=== PATIENT | male | born 1945 | race Caucasian/White ===

== ENCOUNTER 2019-02-10 11:06 | Emergency (ER) | payer MEDICARE ==
[~2019-02-10] VITALS: Ht 188 cm; Wt 105.5 kg
[2019-02-10 11:09] VITALS: Ht 188 cm; Wt 105.5 kg
[2019-02-10] MEDS ORDERED: LEVEMIR IN100 UNITS/ (11:15)
[2019-02-10] MEDS ORDERED: NOVOLOG100 UNIT/1 (11:15)
[2019-02-10] MEDS ORDERED: XALATAN 0.0052.5 ML (11:15)
[2019-02-10] MEDS ORDERED: PROSCAR5 MG (11:16)
[2019-02-10] MEDS ORDERED: CRESTOR20 MG (11:16)
[2019-02-10] MEDS ORDERED: LISINOPRIL20 MG (11:16)
[2019-02-10] MEDS ORDERED: FLOMAX0.4 MG PO (11:16)
[2019-02-10] MEDS ORDERED: BAYER CHEWABLE81 MG (11:16)
[2019-02-10] MEDS ORDERED: CARDIZEM60 MG (11:16)
[2019-02-10 12:18] LABS: ALBUMIN 3.5 g/dL (3.4-5.0); ALKALINE PHOSPHATASE 57 U/L (46-116); ALT (SGPT) 21 U/L (10-68); BILIRUBIN - TOTAL 0.32 mg/dL (0.2-1.3); CALC OSMOLALITY 288 mosm/kg (275-300); CALCIUM 8.6 mg/dL (8.5-10.1); CARBON DIOXIDE 27.9 mmol/L (21.0-32.0); CHLORIDE - SERUM 106 mmol/L (98-107); GLUCOSE 126 mg/dL (74-106); PROTEIN - SERUM 6.3 g/dL (6.4-8.2); SODIUM 141 mmol/L (136-145); UREA NITROGEN 29 mg/dL (7-18); eGFR NON AFRICAN AMERICAN 78 mL/min (90-120)
[2019-02-10 12:28] LABS: CKMB 0.6 U/L (0.0-3.6); TROPONIN-I < 0.017 ng/mL (0.000-0.060)
[2019-02-10 13:09] LABS: APPEARANCE CLEAR (CLEAR); BILIRUBIN NEGATIVE (NEGATIVE); COLOR YELLOW (YELLOW); GLUCOSE NEGATIVE (NEGATIVE); KETONE NEGATIVE (NEGATIVE); NITRITE NEGATIVE (NEGATIVE); PROTEIN NEGATIVE (NEGATIVE); SPECIFIC GRAVITY 1.015 (1.005-1.020); UROBILINOGEN NORMAL (NORMAL)
[2019-02-10 13:22] LABS: BASOPHILS 0.3 % (0-2); EOSINOPHILS 0.9 % (0-7); HEMATOCRIT 38.9 % (42.0-54.0); HEMOGLOBIN 13.2 g/dL (13.5-17.5); IMMATURE GRANULOCYTES 0.1 % (0-5); LYMPHOCYTES 16.7 % (15-50); MCH 28.4 pg (26.0-34.0); MCHC 33.9 g/dL (31.0-37.0); MCV 83.7 fL (80.0-100.0); MEAN PLATELET VOLUME 9.7 fL (7.4-10.4); PLATELET COUNT 121 10x3/uL (130-400); RBC 4.65 10x6/uL (4.20-6.10); RDW 14.7 % (11.5-14.5); WBC 6.7 10x3/uL (4.8-10.8)
[2019-02-10 16:36] VITALS: BP 117/92
[2019-02-10] MEDS ORDERED: PHENERGAN25 M1 PO (17:08)
[2019-02-10] MEDS ORDERED: VOLTAREN75 MG PO (17:08)
[2019-02-10] MEDS ORDERED: OMEPRAZOLE40 MG PO (17:08)
== END 2019-02-10 17:34 | disposition home or self-care (01) ==
LOC: D.ER 11:06
PROVIDERS: Emergency Medicine
DX: M50.30 Other cervical disc degeneration, unspecified cervical region (principal)

== ENCOUNTER 2019-03-12 22:47 | Inpatient (IN) | payer MEDICARE ==
[~2019-03-12] VITALS: Ht 185.4 cm; Wt 96.7 kg
[~2019-03-12 22:47] MED LIST: BAYER CHEWABLE81 MG PO; CARDIZEM60 MG PO; CRESTOR20 MG PO; FLOMAX0.4 MG PO; LEVEMIR IN100 UNITS/ SC; LISINOPRIL20 MG PO; NOVOLOG100 UNIT/1 SC; OMEPRAZOLE40 MG PO; PHENERGAN25 M1 PO; PROSCAR5 MG PO; VOLTAREN75 MG PO; XALATAN 0.0052.5 ML EACH EYE
[2019-03-12] MEDS ORDERED: SYNTHROID75 MCG PO (22:57)
[2019-03-12] MEDS ORDERED: HYDRALAZINE HCL10 MG PO (22:58)
[2019-03-12 23:35] LABS: APPEARANCE CLEAR (CLEAR); BILIRUBIN NEGATIVE (NEGATIVE); COLOR YELLOW (YELLOW); GLUCOSE 100 mg/dL (NEGATIVE); KETONE LARGE mg/dL (NEGATIVE); NITRITE NEGATIVE (NEGATIVE); PROTEIN 1+ mg/dL (NEGATIVE); SPECIFIC GRAVITY 1.025 (1.005-1.020); UROBILINOGEN NORMAL (NORMAL)
[2019-03-12 23:37] LABS: BACTERIA FEW /hpf (NONE SEEN); EPITHELIAL CELLS 0-5 /hpf (0-5); MUCUS <1+ /lpf (NONE SEEN); RED CELLS - URINE 0-5 /hpf (0-5); UDS - AMPHET NEGATIVE QUAL (NEGATIVE); UDS - BARB NEGATIVE QUAL (NEGATIVE); UDS - BENZO NEGATIVE QUAL (NEGATIVE); UDS - COCAINE NEGATIVE QUAL (NEGATIVE); UDS - OPIATE NEGATIVE QUAL (NEGATIVE); UDS - PCP NEGATIVE QUAL (NEGATIVE); UDS - THC NEGATIVE QUAL (NEGATIVE); WHITE CELLS - URINE 0-5 /hpf (0-5)
[2019-03-12 23:49] LABS: HEMATOCRIT 48.7 % (42.0-54.0); HEMOGLOBIN 16.4 g/dL (13.5-17.5); LYMPHOCYTES 4.6 % (15-50); MCH 28.4 pg (26.0-34.0); MCHC 33.7 g/dL (31.0-37.0); MCV 84.3 fL (80.0-100.0); MEAN PLATELET VOLUME 10.3 fL (7.4-10.4); NEUTROPHILS 91.9 % (40-80); PLATELET COUNT 153 10x3/uL (130-400); RBC 5.78 10x6/uL (4.20-6.10); RDW 15.3 % (11.5-14.5)
[2019-03-12 23:54] LABS: WBC 18.4 10x3/uL (4.8-10.8)
[2019-03-12 23:57] VITALS: BP 153/62
[2019-03-12 23:58] LABS: ALBUMIN 3.3 g/dL (3.4-5.0); ALKALINE PHOSPHATASE 56 U/L (46-116); ALT (SGPT) 47 U/L (10-68); BILIRUBIN - TOTAL 0.94 mg/dL (0.2-1.3); CALCIUM 8.8 mg/dL (8.5-10.1); CHLORIDE - SERUM 102 mmol/L (98-107); PROTEIN - SERUM 6.7 g/dL (6.4-8.2); SODIUM 138 mmol/L (136-145)
[2019-03-13] VITALS (24 sets, daily range): BP systolic 129–194; BP diastolic 58–99; BMI 31.2
[2019-03-13] LABS: CALC OSMOLALITY 293 mosm/kg (275-300); CREATININE - SERUM 1.5 mg/dL (0.6-1.3); GLUCOSE 296 mg/dL (74-106); POTASSIUM - SERUM 5.8 mmol/L (3.5-5.1); UREA NITROGEN 31 mg/dL (7-18); eGFR NON AFRICAN AMERICAN 49 mL/min (90-120)
[2019-03-13 00:17] LABS: CREATINE KINASE 4395 UL (21-232); MAGNESIUM - SERUM 1.4 mg/dL (1.8-2.4)
[2019-03-13 00:19] LABS: TROPONIN-I 0.102 ng/mL (0.000-0.060)
[2019-03-13 07:38] LABS: APTT 29.9 SECONDS (22.8-39.4); HEMATOCRIT 43.6 % (42.0-54.0); HEMOGLOBIN 15.4 g/dL (13.5-17.5); INR 1.44 (0.85-1.17); MCH 28.6 pg (26.0-34.0); MCHC 35.3 g/dL (31.0-37.0); PLATELET COUNT 154 10x3/uL (130-400); RBC 5.38 10x6/uL (4.20-6.10); RDW 14.8 % (11.5-14.5); WBC 21.4 10x3/uL (4.8-10.8)
[2019-03-13 07:52] LABS: ALKALINE PHOSPHATASE 54 U/L (46-116); BILIRUBIN - TOTAL 0.62 mg/dL (0.2-1.3); CALC OSMOLALITY 298 mosm/kg (275-300); CALCIUM 8.6 mg/dL (8.5-10.1); CARBON DIOXIDE 22.9 mmol/L (21.0-32.0); CHLORIDE - SERUM 105 mmol/L (98-107); CKMB 55.2 U/L (0.0-3.6); CREATININE - SERUM 1.6 mg/dL (0.6-1.3); GLUCOSE 322 mg/dL (74-106); MAGNESIUM - SERUM 1.7 mg/dL (1.8-2.4); PHOSPHOROUS 2.5 mg/dL (2.5-4.9); PROTEIN - SERUM 6.5 g/dL (6.4-8.2); SODIUM 140 mmol/L (136-145); UREA NITROGEN 34 mg/dL (7-18); eGFR NON AFRICAN AMERICAN 45 mL/min (90-120)
[2019-03-13 07:56] LABS: ALT (SGPT) 60 U/L (10-68); CREATINE KINASE 4645 UL (21-232); POTASSIUM - SERUM 3.8 mmol/L (3.5-5.1); TROPONIN-I 0.092 ng/mL (0.000-0.060)
[2019-03-13 09:33] LABS: EOSINOPHILS 1 % (0-7); LYMPHOCYTES 10 % (15-50); MONOCYTES 7 % (2-11); NEUTROPHILS 59 % (40-80); PLATELET ESTIMATE NORMAL
[2019-03-13 09:34] LABS: ANISOCYTOSIS OCC
[2019-03-13 12:58] LABS: CKMB 46.1 U/L (0.0-3.6); CREATINE KINASE 4911 UL (21-232); TROPONIN-I 0.104 ng/mL (0.000-0.060)
[2019-03-13 19:30] LABS: CREATINE KINASE 3338 UL (21-232); TROPONIN-I 0.095 ng/mL (0.000-0.060)
[2019-03-14] VITALS (23 sets, daily range): BP systolic 121–187; BP diastolic 54–82
[2019-03-14 04:31] LABS: BASOPHILS 0 % (0-2); EOSINOPHILS 0 % (0-7); HEMOGLOBIN 15.1 g/dL (13.5-17.5); LYMPHOCYTES 7.4 % (15-50); MCH 28.6 pg (26.0-34.0); MCHC 34.3 g/dL (31.0-37.0); MCV 83.3 fL (80.0-100.0); MEAN PLATELET VOLUME 10.1 fL (7.4-10.4); MONOCYTES 4.9 % (2-11); NEUTROPHILS 86.7 % (40-80); PLATELET COUNT 123 10x3/uL (130-400); RBC 5.28 10x6/uL (4.20-6.10); RDW 14.8 % (11.5-14.5); WBC 19.2 10x3/uL (4.8-10.8)
[2019-03-14 04:56] LABS: ALBUMIN 2.7 g/dL (3.4-5.0); BILIRUBIN - TOTAL 0.64 mg/dL (0.2-1.3); CALCIUM 8.6 mg/dL (8.5-10.1); CARBON DIOXIDE 27.5 mmol/L (21.0-32.0); PROTEIN - SERUM 5.7 g/dL (6.4-8.2)
[2019-03-14 04:58] LABS: ANION GAP 16.1 mmol/L (8-16); CREATININE - SERUM 1.1 mg/dL (0.6-1.3); POTASSIUM - SERUM 4.6 mmol/L (3.5-5.1)
[2019-03-14 14:54] LABS: CHOL - HDL RATIO 1.8 ratio (2.3-4.9); LDL-HDL RATIO 0.6 ratio (1.5-3.5)
--- NOTE | 2019-03-14 20:45 | MORECARE ---
CASE MANAGEMENT DISCHARGE SUMMARY PATIENT: MAME DOWNEY RAY UNIT: [id number] ADM DATE: 03/12/19 AGE: 73 : 44 SEX: M ROOM/BED: D.2310 AUTHOR: RODRIGUEZ CHAVARRIA PHYSICIAN: REFERRING PHYSICIAN: AYAD QUIROS MD DATE OF SERVICE: 03/14/19 Discharge Plan Patient Name: MAME DOWNEY [facility] : 1945 Planned Disposition: Anticipated Discharge Date: Discharge Date: Expected LOS: Initial Reviewer: [email or web address] Initial Review Date: 03/13/2019 Generated: 03/14/19 9:44 pm Comments DCP- Discharge Planning Updated by [email or web address]: Sona Burgos on 03/14/19 7:[address] CM attempted to see patient for discharge planning he will open his eyes but is non-verbal. No family available at this time. CM will continue to follow and assist as needed with discharge planning / needs. Patient Name: MAME DOWNEY Page [phone] at 2045 All edits/amendments must be made on the electronic document DICTATION DATE: 03/14/192043 DRY PRESS OPERATOR: NANNETTE 03/14/192043 RPT#: [id number] DC DATE: STATUS: ADM IN [facility] [address] [place] [address] END OF REPORT
[2019-03-15] VITALS (8 sets, daily range): BP systolic 156–182; BP diastolic 71–86
[2019-03-15 04:39] LABS: BASOPHILS 0 % (0-2); EOSINOPHILS 0.1 % (0-7); HEMATOCRIT 40.3 % (42.0-54.0); HEMOGLOBIN 13.6 g/dL (13.5-17.5); IMMATURE GRANULOCYTES 0.3 % (0-5); LYMPHOCYTES 7.4 % (15-50); MCHC 33.7 g/dL (31.0-37.0); MCV 83.1 fL (80.0-100.0); MEAN PLATELET VOLUME 11.1 fL (7.4-10.4); MONOCYTES 5.4 % (2-11); NEUTROPHILS 86.8 % (40-80); PLATELET COUNT 132 10x3/uL (130-400); RBC 4.85 10x6/uL (4.20-6.10); RDW 14.4 % (11.5-14.5); WBC 17.2 10x3/uL (4.8-10.8)
[2019-03-15 04:48] LABS: ALBUMIN 2.4 g/dL (3.4-5.0); ALKALINE PHOSPHATASE 63 U/L (46-116); ALT (SGPT) 54 U/L (10-68); BILIRUBIN - TOTAL 0.79 mg/dL (0.2-1.3); CALC OSMOLALITY 294 mosm/kg (275-300); CALCIUM 8.2 mg/dL (8.5-10.1); CARBON DIOXIDE 28.2 mmol/L (21.0-32.0); CHLORIDE - SERUM 108 mmol/L (98-107); GLUCOSE 194 mg/dL (74-106); MAGNESIUM - SERUM 1.9 mg/dL (1.8-2.4); POTASSIUM - SERUM 4.1 mmol/L (3.5-5.1); PROTEIN - SERUM 5.2 g/dL (6.4-8.2); SODIUM 143 mmol/L (136-145); UREA NITROGEN 26 mg/dL (7-18)
[2019-03-15 04:49] LABS: CREATININE - SERUM 0.8 mg/dL (0.6-1.3); PHOSPHOROUS 1.4 mg/dL (2.5-4.9); eGFR NON AFRICAN AMERICAN > 90 mL/min (90-120)
--- NOTE | 2019-03-15 16:55 | MORECARE ---
CASE MANAGEMENT DISCHARGE SUMMARY PATIENT: MAME DOWNEY RAY UNIT: [id number] ADM DATE: 03/12/19 AGE: 73 : 44 SEX: M ROOM/BED: D.2310 AUTHOR: RODRIGUEZ CHAVARRIA PHYSICIAN: REFERRING PHYSICIAN: AYAD QUIROS MD DATE OF SERVICE: 03/15/19 Discharge Plan Patient Name: MAME DOWNEY [facility] [facility] 1945 Planned Disposition: Anticipated Discharge Date: Discharge Date: Expected LOS: Initial Reviewer: [email or web address] Initial Review Date: 03/13/2019 Generated: 03/15/19 5:54 pm Comments DCP- Discharge Planning Updated by [email or web address]: Sona Burgos on 03/14/19 7:[address] CM attempted to see patient for discharge planning he will open his eyes but is non-verbal. No family available at this time. CM will continue to follow and assist as needed with discharge planning / needs. Last DP export: 03/14/19 7:45 p Patient Name: MAME DOWNEY Page [phone] at 1655 All edits/amendments must be made on the electronic document DICTATION DATE: 03/15/191653 CAR DUMPER OPERATOR: NANNETTE 03/15/191653 RPT#: [id number] DC DATE: STATUS: ADM IN [facility] [address] [place] [address] END OF REPORT
--- NOTE | 2019-03-15 17:02 | MORECARE ---
CASE MANAGEMENT DISCHARGE SUMMARY PATIENT: MAME DOWNEY RAY UNIT: [id number] ADM DATE: 03/12/19 AGE: 73 : 44 SEX: M ROOM/BED: D.2310 AUTHOR: DEONDOC PHYSICIAN: REFERRING PHYSICIAN: AYAD QUIROS MD DATE OF SERVICE: 03/15/19 Discharge Plan Patient Name: MAME DOWNEY Facility: [facility]:[place] : 1945 Planned Disposition: Anticipated Discharge Date: Discharge Date: Expected LOS: Initial Reviewer: [email or web address] Initial Review Date: 03/13/2019 Generated: 03/15/19 6:01 pm Comments DCP- Discharge Planning Updated by [email or web address]: Vania Tatum on 03/15/19 3:[address] Patient Name: MAME DOWNEY Admission Status: ER Accout number: [id number] Admission Date: 03-12-2019 : 1945 Admission Diagnosis:OTHER CEREBRAL INFARCTION Attending: AYAD QUIROS Current LOS: 3 Anticipated DC Date: Planned Disposition: Primary Insurance: [employer] CHOICE PPO MCR ADVANT Discharge Planning Comments: CM SPOKE WITH PATIENT'S SON MATY DOWNEY OVER THE PHONE ABOUT DC NEEDS. THE SON STATES WOULD LIKE [facility] IF APPROPRIATE. HE STATES HIS FATHER CURRENTLY LIVES ALONE BUT WILL NEED REHAB BEFORE DISCHARGE TO HOME. [facility]. CM TO FOLLOW. Machine Marker: Vania Tatum Appended by Vania Tatum on 03/15/2019 16:57 CDT: THE SON ALSO STATED THAT HIS FATHER IS A VA PATIENT BUT HAS HUMANA, STATES IF INSURANCE COVERS SKILLED WITHOUT GOING THROUGH THE VA HE WANTS TO GO THAT ROUTE. DCP- Discharge Planning Updated by [email or web address]: Sona Burgos on 03/14/19 7:[address] CM attempted to see patient for discharge planning he will open his eyes but is non-verbal. No family available at this time. CM will continue to follow and assist as needed with discharge planning / needs. Coverage Notice Reviewer: [email or web address] - Vania Tatum Notice Issued Date-Time: 03/15/2019 16:55 Notice Type: Patient Choice Letter Notice Delivered To: Family Member Relationship to Patient: Son Second Vp Hr Assessment Name: MATY DOWNEY Delivery Method: PHONE - Phone Deanne Days: Prior Verbal Notification: Recipient Understood Notice: Yes Recipient Signature: Med Rec Note Co-signed by Attending: Coverage Notice Comment: [facility] FOR SNF. Last DP export: 03/15/19 3:55 p Patient Name: MAME DOWNEY Page [phone] at 1702 All edits/amendments must be made on the electronic document DICTATION DATE: 03/15/191700 RUBBER AND PLASTICS WORKER: NANNETTE 03/15/191700 RPT#: [id number] DC DATE: STATUS: ADM IN [facility] [address] [place] [address] END OF REPORT
[2019-03-16] VITALS (13 sets, daily range): BP systolic 132–174; BP diastolic 62–79
[2019-03-16 03:33] LABS: BASOPHILS 0 % (0-2); EOSINOPHILS 0.5 % (0-7); HEMATOCRIT 38.1 % (42.0-54.0); IMMATURE GRANULOCYTES 0.3 % (0-5); LYMPHOCYTES 8.3 % (15-50); MCH 28.3 pg (26.0-34.0); MCHC 34.1 g/dL (31.0-37.0); MCV 82.8 fL (80.0-100.0); MEAN PLATELET VOLUME 10.5 fL (7.4-10.4); MONOCYTES 7.9 % (2-11); PLATELET COUNT 130 10x3/uL (130-400); RDW 14.4 % (11.5-14.5)
[2019-03-16 03:48] LABS: ALBUMIN 2.1 g/dL (3.4-5.0); ALKALINE PHOSPHATASE 61 U/L (46-116); ALT (SGPT) 52 U/L (10-68); BILIRUBIN - TOTAL 0.78 mg/dL (0.2-1.3); CALC OSMOLALITY 294 mosm/kg (275-300); CARBON DIOXIDE 24.7 mmol/L (21.0-32.0); CHLORIDE - SERUM 107 mmol/L (98-107); CREATININE - SERUM 0.7 mg/dL (0.6-1.3); GLUCOSE 211 mg/dL (74-106); MAGNESIUM - SERUM 1.8 mg/dL (1.8-2.4); PROTEIN - SERUM 4.8 g/dL (6.4-8.2); SODIUM 144 mmol/L (136-145); eGFR NON AFRICAN AMERICAN > 90 mL/min (90-120)
[2019-03-16 03:51] LABS: PHOSPHOROUS 2.5 mg/dL (2.5-4.9); UREA NITROGEN 18 mg/dL (7-18)
[2019-03-16 03:58] LABS: WBC 12.5 10x3/uL (4.8-10.8)
[2019-03-17] VITALS: BP 124/76; BP 160/60
[2019-03-17 04:00] VITALS: BP 161/66
[2019-03-17 06:58] LABS: BASOPHILS 0.1 % (0-2); EOSINOPHILS 0.4 % (0-7); HEMATOCRIT 39.5 % (42.0-54.0); HEMOGLOBIN 13.4 g/dL (13.5-17.5); IMMATURE GRANULOCYTES 0.5 % (0-5); LYMPHOCYTES 7.4 % (15-50); MCH 27.9 pg (26.0-34.0); MCHC 33.9 g/dL (31.0-37.0); MCV 82.3 fL (80.0-100.0); MEAN PLATELET VOLUME 10.7 fL (7.4-10.4); MONOCYTES 8.3 % (2-11); NEUTROPHILS 83.3 % (40-80)
[2019-03-17 07:06] LABS: ALBUMIN 2.4 g/dL (3.4-5.0); ALKALINE PHOSPHATASE 68 U/L (46-116); ALT (SGPT) 52 U/L (10-68); BILIRUBIN - TOTAL 1.07 mg/dL (0.2-1.3); CALC OSMOLALITY 285 mosm/kg (275-300); CALCIUM 8.1 mg/dL (8.5-10.1); CARBON DIOXIDE 23.6 mmol/L (21.0-32.0); CHLORIDE - SERUM 103 mmol/L (98-107); GLUCOSE 256 mg/dL (74-106); MAGNESIUM - SERUM 1.8 mg/dL (1.8-2.4); POTASSIUM - SERUM 3.7 mmol/L (3.5-5.1); PROTEIN - SERUM 5.2 g/dL (6.4-8.2); SODIUM 138 mmol/L (136-145); UREA NITROGEN 16 mg/dL (7-18)
[2019-03-17 07:09] LABS: CREATININE - SERUM 0.9 mg/dL (0.6-1.3); eGFR NON AFRICAN AMERICAN 88 mL/min (90-120)
[2019-03-17 07:23] LABS: PLATELET COUNT 171 10x3/uL (130-400)
[2019-03-17 08:55] VITALS: BP 131/44
[2019-03-17 16:25] VITALS: BP 169/62
[2019-03-17 20:00] VITALS: BP 146/64
[2019-03-17 23:27] VITALS: BP 152/65
[2019-03-18 04:51] LABS: BASOPHILS 0.1 % (0-2); EOSINOPHILS 0.7 % (0-7); HEMATOCRIT 37.6 % (42.0-54.0); IMMATURE GRANULOCYTES 0.6 % (0-5); LYMPHOCYTES 10.8 % (15-50); MCH 28.2 pg (26.0-34.0); MCHC 34.6 g/dL (31.0-37.0); MCV 81.6 fL (80.0-100.0); MEAN PLATELET VOLUME 9.7 fL (7.4-10.4); MONOCYTES 11.2 % (2-11); NEUTROPHILS 76.6 % (40-80); PLATELET COUNT 154 10x3/uL (130-400); RBC 4.61 10x6/uL (4.20-6.10); RDW 13.8 % (11.5-14.5); WBC 10.1 10x3/uL (4.8-10.8)
[2019-03-18 05:08] VITALS: BP 168/68
[2019-03-18 05:12] LABS: ALBUMIN 2.2 g/dL (3.4-5.0); ALKALINE PHOSPHATASE 61 U/L (46-116); ALT (SGPT) 42 U/L (10-68); BILIRUBIN - TOTAL 1.01 mg/dL (0.2-1.3); CALC OSMOLALITY 288 mosm/kg (275-300); CALCIUM 7.9 mg/dL (8.5-10.1); CARBON DIOXIDE 23.3 mmol/L (21.0-32.0); CHLORIDE - SERUM 103 mmol/L (98-107); CREATININE - SERUM 0.8 mg/dL (0.6-1.3); GLUCOSE 276 mg/dL (74-106); POTASSIUM - SERUM 3.6 mmol/L (3.5-5.1); SODIUM 139 mmol/L (136-145); UREA NITROGEN 15 mg/dL (7-18); eGFR NON AFRICAN AMERICAN > 90 mL/min (90-120)
[2019-03-18 08:56] VITALS: BP 168/70
[2019-03-18 20:20] VITALS: BP 142/61
[2019-03-18 20:30] VITALS: BP 142/61; Ht 185.4 cm; Wt 96.7 kg
[2019-03-18 22:30] VITALS: BP 168/81
[2019-03-18 23:00] VITALS: BP 171/74
[2019-03-19] VITALS (19 sets, daily range): BP systolic 109–174; BP diastolic 51–102
[2019-03-19 03:57] LABS: BASOPHILS 0.1 % (0-2); EOSINOPHILS 0.3 % (0-7); HEMATOCRIT 35.5 % (42.0-54.0); HEMOGLOBIN 12.2 g/dL (13.5-17.5); IMMATURE GRANULOCYTES 0.5 % (0-5); LYMPHOCYTES 9.2 % (15-50); MCH 27.9 pg (26.0-34.0); MCHC 34.4 g/dL (31.0-37.0); MCV 81.2 fL (80.0-100.0); MEAN PLATELET VOLUME 10.1 fL (7.4-10.4); MONOCYTES 11.7 % (2-11); NEUTROPHILS 78.2 % (40-80); PLATELET COUNT 173 10x3/uL (130-400); RBC 4.37 10x6/uL (4.20-6.10); RDW 13.7 % (11.5-14.5); WBC 7.6 10x3/uL (4.8-10.8)
[2019-03-19 06:36] LABS: ALBUMIN 2.2 g/dL (3.4-5.0); ALKALINE PHOSPHATASE 56 U/L (46-116); ALT (SGPT) 45 U/L (10-68); BILIRUBIN - TOTAL 0.71 mg/dL (0.2-1.3); CALC OSMOLALITY 290 mosm/kg (275-300); CALCIUM 7.9 mg/dL (8.5-10.1); CARBON DIOXIDE 30.2 mmol/L (21.0-32.0); CHLORIDE - SERUM 105 mmol/L (98-107); CREATININE - SERUM 0.8 mg/dL (0.6-1.3); GLUCOSE 220 mg/dL (74-106); POTASSIUM - SERUM 3.6 mmol/L (3.5-5.1); PROTEIN - SERUM 5.5 g/dL (6.4-8.2); SODIUM 142 mmol/L (136-145); UREA NITROGEN 14 mg/dL (7-18); VANCOMYCIN - TROUGH 13.8 ug/mL (10.0-20.0); eGFR NON AFRICAN AMERICAN > 90 mL/min (90-120)
[2019-03-19] MEDS ORDERED: MAXIPIME 2 GM/D52 G1 IV (18:53)
[2019-03-19] MEDS ORDERED: VANCOMYCIN 1 GM/1 G1 IV ×2 (18:54→18:55)
--- NOTE | 2019-03-20 09:21 | MORECARE ---
CASE MANAGEMENT DISCHARGE SUMMARY PATIENT: MAME DOWNEY RAY UNIT: [id number] ADM DATE: 03/12/19 AGE: 73 : 44 SEX: M ROOM/BED: D.2306 AUTHOR: RODRIGUEZ CHAVARRIA PHYSICIAN: REFERRING PHYSICIAN: AYAD QUIROS MD DATE OF SERVICE: 03/20/19 Discharge Plan Patient Name: MAME DOWNEY Facility: [facility]:[place] : 1945 Planned Disposition: Anticipated Discharge Date: Discharge Date: 03/19/2019 Expected LOS: Initial Reviewer: [email or web address] Initial Review Date: 03/13/2019 Generated: 03/20/19 10:21 am Comments DCP- Discharge Planning Updated by [email or web address]: Vania Tatum on 03/15/19 3:[address] Patient Name: MAME DOWNEY Admission Status: ER Accout number: [id number] Admission Date: 03-12-2019 : 1945 Admission Diagnosis:OTHER CEREBRAL INFARCTION Attending: AYAD QUIROS Current LOS: 3 Anticipated DC Date: Planned Disposition: Primary Insurance: [employer] CHOICE PPO MCR ADVANT Discharge Planning Comments: CM SPOKE WITH PATIENT'S SON MATY DOWNEY OVER THE PHONE ABOUT DC NEEDS. THE SON STATES WOULD LIKE [facility] IF APPROPRIATE. HE STATES HIS FATHER CURRENTLY LIVES ALONE BUT WILL NEED REHAB BEFORE DISCHARGE TO HOME. [facility] COMPLE[facility]. CM TO FOLLOW. Rough Rice Grader: Vania Tatum Appended by Vania Tatum on 03/15/2019 16:57 CDT: THE SON ALSO STATED THAT HIS FATHER IS A VA PATIENT BUT HAS HUMANA, STATES IF INSURANCE COVERS SKILLED WITHOUT GOING THROUGH THE VA HE WANTS TO GO THAT ROUTE. DCP- Discharge Planning Updated by [id number]: Sona Burgos on 03/14/19 7:[address] CM attempted to see patient for discharge planning he will open his eyes but is non-verbal. No family available at this time. CM will continue to follow and assist as needed with discharge planning / needs. Coverage Notice Reviewer: [email or web address] - Vania Tatum Notice Issued Date-Time: 03/15/2019 16:55 Notice Type: Patient Choice Letter Notice Delivered To: Family Member Relationship to Patient: Son Admissions Specialist Name: MATY DOWNEY Delivery Method: PHONE - Phone Deanne Days: Prior Verbal Notification: Recipient Understood Notice: Yes Recipient Signature: Med Rec Note Co-signed by Attending: Coverage Notice Comment: [facility] FOR SNF. Last DP export: 03/15/19 4:02 p Patient Name: MAME DOWNEY Page [phone] at 0921 All edits/amendments must be made on the electronic document DICTATION DATE: 03/20/19920 GUEST RELATIONS AGENT: NANNETTE 03/20/19920 RPT#: [id number] DC DATE:03/19/19 STATUS: DIS IN [facility] [address] [place] [address] END OF REPORT
== END 2019-03-19 19:22 | DRG 64 ==
LOC: D.ER 22:47 → D.MS 23:33 → D.ICU 23:33 → D.MS 03-16 16:49 → D.ICU 03-18 20:40
PROVIDERS: Emergency Medicine; Family Medicine; ADMIT Internal Medicine Nephrology; ATTEND Internal Medicine Nephrology
DX: I63.89 Other cerebral infarction (principal); G92 Toxic encephalopathy; J69.0 Pneumonitis due to inhalation of food and vomit; N17.9 Acute kidney failure, unspecified; M62.82 Rhabdomyolysis; K21.9 Gastro-esophageal reflux disease without esophagitis; E78.5 Hyperlipidemia, unspecified; E87.5 Hyperkalemia; E83.42 Hypomagnesemia; D72.819 Decreased white blood cell count, unspecified; E11.65 Type 2 diabetes mellitus with hyperglycemia; R47.01 Aphasia; I25.10 Atherosclerotic heart disease of native coronary artery without angina pectoris; I10 Essential (primary) hypertension; E03.9 Hypothyroidism, unspecified; N40.0 Benign prostatic hyperplasia without lower urinary tract symptoms; E11.42 Type 2 diabetes mellitus with diabetic polyneuropathy; Z79.4 Long term (current) use of insulin

== ENCOUNTER 2019-03-13 08:00 | Outpatient (CLI) | payer MEDICARE ==
[2019-03-11 11:45] LABS: HEMATOCRIT 43.2 % (42.0-54.0); HEMOGLOBIN 14.7 g/dL (13.5-17.5); MCH 28.2 pg (26.0-34.0); MCV 82.9 fL (80.0-100.0); MEAN PLATELET VOLUME 10.2 fL (7.4-10.4); RBC 5.21 10x6/uL (4.20-6.10); RDW 14.3 % (11.5-14.5); WBC 9.4 10x3/uL (4.8-10.8)
[2019-03-11 11:56] LABS: ANION GAP 10.4 mmol/L (8-16); CALCIUM 8.9 mg/dL (8.5-10.1); CARBON DIOXIDE 32.5 mmol/L (21.0-32.0); CREATININE - SERUM 1.1 mg/dL (0.6-1.3); POTASSIUM - SERUM 4.9 mmol/L (3.5-5.1)
[~2019-03-13 08:00] MED LIST changes: +HYDRALAZINE HCL10 MG PO; +SYNTHROID75 MCG PO
[2019-03-13 08:56] VITALS: Wt 73.5 kg
== END 2019-03-13 08:01 | disposition home or self-care (01) ==
LOC: D.OPS 08:00 → EDSTATUS 09:55 → D.PAN 09:55 → D.OPS 10:15 → D.PAN 10:30 → D.OPS 10:30
PROVIDERS: Anesthesiology; ATTEND Neurological Surgery
DX: M54.12 Radiculopathy, cervical region (principal)

== ENCOUNTER 2019-03-19 19:20 | Inpatient (IN) | payer MEDICARE ==
[~2019-03-19 19:20] MED LIST changes: +MAXIPIME 2 GM/D52 G1 IV; +VANCOMYCIN 1 GM/1 G1 IV
[2019-03-19 20:00] VITALS: BP 163/73
--- NOTE | 2019-03-20 01:54 | NUR ---
PATIENT ARRIVED AT 19:20 FROM ICU, SL RIGHT AC, ALERT AND ORIENTED TO PERSON AND PLACE, SON ARRIVED SHORTLY AFTER PATIENT, CODE WORD IS 'RAY', CODE STATUS IS FULL CODE, NECKLACE AND HEARING AIDS AND ALL VALUBLES SENT HOME WITH SON, PHYSICIAN AWARE OF ARRIVAL, WILL CONTINUE TO MONITOR,
[2019-03-20 05:14] VITALS: BP 157/71
[2019-03-20 05:29] LABS: APPEARANCE CLEAR (CLEAR); BILIRUBIN NEGATIVE (NEGATIVE); COLOR YELLOW (YELLOW); GLUCOSE 1000 mg/dL (NEGATIVE); KETONE LARGE mg/dL (NEGATIVE); NITRITE NEGATIVE (NEGATIVE); PROTEIN NEGATIVE (NEGATIVE); UROBILINOGEN NORMAL (NORMAL)
[2019-03-20 05:40] LABS: BACTERIA FEW /hpf (NONE SEEN); EPITHELIAL CELLS 0-5 /hpf (0-5); RED CELLS - URINE 0-5 /hpf (0-5); WHITE CELLS - URINE 0-5 /hpf (0-5)
[2019-03-20 07:58] LABS: THYROID STIMULATING HORMONE 2.78 uIU/mL (0.36-3.74)
--- NOTE | 2019-03-20 08:00 | NUR ---
SON CALLED TO CHECK ON PT, STATED THAT HE HAD PT'S DAUGHTER WOULD BE HERE TO VISIT TODAY.
[2019-03-20 10:45] VITALS: BP 119/58
--- NOTE | 2019-03-20 11:32 | NUR ---
RECEIVED PT IN DINING ROOM FOR B'FAST, ALERT, CALM, COOPERATIVE AT THIS TIME. COMPLIANT WITH CARE. SALINE LOCK REMOVED FROM RT AC. CONT POC DIRECTED.
[2019-03-20 13:49] VITALS: Wt 92.8 kg
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
--- NOTE | 2019-03-20 16:55 | NUR ---
NURSE CHECKED PATIENT BLOOD SUGAR AT 590 MG/DL. NURSE CALLED LAB WITH A CRITICAL LAB TO DRAW STAT. REPORTED TO CHARGE NURSE. WILL CONT TO MONITOR BLOOD SUGAR.
--- NOTE | 2019-03-20 17:46 | NUR ---
SPOKE WITH DR. HARMON
--- NOTE | 2019-03-20 17:49 | NUR ---
SPOKE WITH DR. JUAREZ ABOUT PATIENT INTIAL BLOOD SUGAR OF 590 MG/DL AND 30 MINUTES LATER RECHECKED BLOOD SUGAR WAS 528 MG/DL. WILL REPORT TO ONCOMING SHIFT TO RECHECK BLOOD SUGAR AND FOLLOW HS INSULIN SCHEDULE.
--- NOTE | 2019-03-20 18:27 | NUR ---
RESULTS OF STAT GLUCOSE RECEIVED. GLUCOSE = 569. DR JUAREZ NOTIFIED WHEN LAB WAS DRAWN AND INTRUCTED TO RECHECK GLUCOSE IN 4 HOURS.
--- NOTE | 2019-03-21 01:18 | NUR ---
PT FSBS AT [address] JUAREZ AND INFORMED OF CRITICAL GLUCOSE LEVEL TRENDING DOWNWARDS. SHE ORDERED TO GIVE 10 UNITS OF HUMULIN PER SLIDING SCALE. VERIFIED WITH PHYSICIAN BY TELEPHONE.
--- NOTE | 2019-03-21 03:53 | NUR ---
B.) PT IS ALERT AND ORIENTED TO SELF. HE IS EXIT SEEKING AND IS DEMANDING TO LEAVE. HE STATES "I NEED TO CALL MY AND SON TO COME PICK ME UP." I.) PROVIDED PM MEDICATIONS. REDIRECT AND REORIENT OFTEN. R.) COMPLIANT WITH ALL MEDICATIONS. REMAINS CONFUSED DESPITE ATTEMPTS TO REDIRECT. P.) CONTINUE PLAN OF CARE
[2019-03-21 08:11] LABS: RAPID PLASMA REAGIN Non Reactive (Non Reactive)
[2019-03-21 08:43] VITALS: BP 134/56
[2019-03-21 09:15] VITALS: BP 119/58
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
--- NOTE | 2019-03-21 16:46 | NUR ---
FSBS 49. PEANUT BUTTER AND CRACKERS PROVIDED.
--- NOTE | 2019-03-21 18:04 | NUR ---
FSBS 100 AT THIS TIME.
[2019-03-21 20:17] VITALS: BP 166/65
--- NOTE | 2019-03-21 21:08 | NUR ---
PATIENT IS CONFUSED AT TIMES, CAN MAKE SIMPLE NEEDS KNOWN, ENCOURAGED TO EAT AN HS SNACK TO KEEP BLOOD SUGAR STABLE. WILL FOLLOW POC
--- NOTE | 2019-03-22 06:04 | NUR ---
FSBS 32. STAT GLUCOSE PER LAB ORDERED PER PROTOCOL. PATIENT IS ALERT AND TALKING WITH NURSE. SNACK OF ORANGE JUICE, MAN CRACKERS AND PEANUT BUTTER BROUGHT TO PATIENT.
--- NOTE | 2019-03-22 06:28 | NUR ---
patient given a turkey sandwich and an 8 ounce coke for a blood glucose of 32. patient is asymptomatic, lab drawn for glucose level.
[2019-03-22 07:30] VITALS: BP 156/60
--- NOTE | 2019-03-22 12:44 | PN ---
PATIENT:MAME DOWNEY MEDICAL RECORD: [id number] LOCATION:[facility] ADMISSION DATE: 03/19/19 PROGRESS NOTE DATE OF SERVICE: 03/21/2019 SUBJECTIVE: The patient's case was discussed with staff. He has no new complaint. OBJECTIVE: The patient is significantly calmer today. He still has a hypervigilant appearance. I am going to give him a low dose of Klonopin to assist with his agitation. I think much of the problem is related to him being unable to process environmental stimuli and then becoming frightened and agitated. TRANSINT:[id number] Voice Confirmation ID: [id number] DOCUMENT ID: [id number] GEO RUTHERFORD MD at 1244 CC: [id number] DICTATION DATE: 03/21/19 1611 VAN CDL DRIVER: 03/21/19 192 ADM IN [facility] [address] [place] [id number]
--- NOTE | 2019-03-22 14:56 | NUR ---
B) The patient is [place], he is pleasant, he has not shown any aggression today. He ambulates independently. I) Provide prescribed meds. R) The patient is compliant with meds. P) Continue POC.
[2019-03-22 20:00] VITALS: BP 112/46
--- NOTE | 2019-03-22 20:10 | NUR ---
REC'D SITTING IN THE DAYROOM. PACES ON UNIT. DISPLEASED HE IS HERE. NO INSIGHT INTO THE REASON FOR ADMISSION. PRESSURED SPEECH WHEN TALKS WITH YOU. WITHDRAWN. ADMINISTER MEDS PER ORDERS Q SHIFT AND MONITOR COMPLIANCE. INVOLVE IN GROUP PARTICIPATION. MED COMPLIANT. COOPERATES WITH STAFF REQUEST HOWEVER STAYS TO SELF AND DOES MINIMAL PARTICIPATION IN GROUPS. CONTINUE POC AND [RPVODE SAFE ENVIRPNMENT.
[2019-03-23 08:15] VITALS: BP 116/59
--- NOTE | 2019-03-23 10:49 | NUR ---
B) The patient is awake and alert, he has poor insight into his situation, he does not understand why he is here and he is sleepy today. I) Provide prescribed meds. R) The patient is compliant with meds. P) Continue POC.
--- NOTE | 2019-03-23 11:29 | PN ---
PATIENT:MAME DOWNEY MEDICAL RECORD: [id number] LOCATION:[facility]112 ADMISSION DATE: 03/19/19 PROGRESS NOTE DATE OF SERVICE: 03/22/2019 SUBJECTIVE: The patient's case was discussed with staff. He has no new complaint. OBJECTIVE: The patient is in good behavioral control. He has poor insight about his condition. He tolerates his medicines well. ASSESSMENT: Dementia. PLAN: Current medicines have been reviewed and will be maintained. Long-term prognosis is guarded. TRANSINT:[id number] Voice Confirmation ID: [id number] DOCUMENT ID: [id number] GEO RUTHERFORD MD at 1129 CC: [id number] DICTATION DATE: 03/22/19 1315 HAY RAKE OPERATOR: 03/22/19 1359 ADM IN [address] [address]
[2019-03-23 20:00] VITALS: BP 135/78
--- NOTE | 2019-03-23 20:52 | NUR ---
RECEIVED IN DAYROOM. SITTING IN A CHAIR WITH PEERS AT HIS SIDE. CALM AND COOPERATIVE WITH CARE AND ASSESSMENT. NO SIGNS OF AGGRESSION. REDIRECT AND REORIENT NEEDED. CONTINUES TO SIT CALMLY IN CHAIR. CONTINUE PLAN OF CARE
[2019-03-24 08:00] VITALS: BP 121/63
--- NOTE | 2019-03-24 09:25 | NUR ---
B) The patient is very sleepy, he is laying on the couch. He has poor insight into the situation. He ambulates independently. I) Provide prescribed meds. R) The patient is compliant with meds. P) Contiue POC.
--- NOTE | 2019-03-24 15:00 | PN ---
PATIENT:MAME DOWNEY MEDICAL RECORD: [id number] LOCATION:[facility] ADMISSION DATE: 03/19/19 PROGRESS NOTE DATE OF SERVICE: 03/23/2019 SUBJECTIVE: The patient's case was discussed with staff. He has no new complaint. OBJECTIVE: The patient is in good behavioral control, but quite confused. ASSESSMENT: No change in diagnoses. PLAN: Brief supportive and educational interventions were made. Long-term prognosis is guarded. I am going to start him on a low dose Celexa. TRANSINT:[id number] Voice Confirmation ID: [id number] DOCUMENT ID: [id number] GEO RUTHERFORD MD at 1500 CC: [id number] DICTATION DATE: 03/23/19 1142 HR ASSOCIATE: 03/23/19 1251 ADM IN [place] [id number] [place] [address]
[2019-03-24 20:20] VITALS: BP 130/80
--- NOTE | 2019-03-24 21:39 | NUR ---
RECEIVED IN DAYROOM. SITTING CALMLY ON THE SOFA KEEPING TO HIMSELF. CALM AND COOPERATIVE WITH CARE AND ASSESSMENT. NO SIGNS OF AGGRESSION. REDIERCT AND REORIENT NEEDED. RESTING IN BED WITH EYES CLOSED. CONTINUE PLAN OF CARE
[2019-03-25 08:00] VITALS: BP 145/51
--- NOTE | 2019-03-25 09:25 | PN ---
PATIENT:MAME DOWNEY MEDICAL RECORD: [id number] LOCATION:[facility] ADMISSION DATE: 03/19/19 PROGRESS NOTE DATE OF SERVICE: 03/24/2019 SUBJECTIVE: The patient's case was discussed with staff. He has no new complaint. OBJECTIVE: The patient is in good behavioral control with limited insight about his condition. He is tolerating his medicines reasonably well. He is still not eating well, but he is receiving Megace to assist with appetite stimulation. ASSESSMENT: Dementia. PLAN: The patient's condition is grave. His dementia is advanced. This not fitting entirely with the history the family has provided, but nevertheless it is true. I am not sure how to explain the discrepancy, but this patient has every symptom that is consistent with an advanced dementia. He will be maintained on current medicines. His long-term prognosis is guarded. I would anticipate he can be transitioned out of the hospital soon, since his behaviors have largely and dramatically improved, but he certainly needs appropriate placement. TRANSINT:[id number] Voice Confirmation ID: [id number] DOCUMENT ID: [id number] GEO RUTHERFORD MD at 0925 CC: [id number] DICTATION DATE: 03/24/19 1616 CEMENT SIDE LASTER: 03/24/19 2130 ADM IN [place] [id number] [place] [id number]
--- NOTE | 2019-03-25 13:19 | NUR ---
PT IS ALERT TO PERSON. PT IS VERY SLEEPY TODAY, SLEEPING ON THE COUCH MOST OF THE DAY. PT HAS POOR INSIGHT TO SITUATION. CALM AND COOEPRATIVE WITH ASSESSMENT. REDIRECT AND REORIENT NEEDED. MED COMPLIANT. WILL CPOC.
--- NOTE | 2019-03-25 21:14 | NUR ---
RECEIVED IN DAYROOM. LAYING ON THE SOFA. KEEPING TO HIMSELF. CALM AND COOPERATIVE WITH CARE AND ASSESSMENT. NO SIGNS OF AGGRESSION. REDIRECT AND REORIENT NEEDED. IN BEDROOM AT THIS TIME SITTING ON THE EDGE OF HIS BED. CONTINUE PLAN OF CARE
[2019-03-25 21:49] VITALS: BP 140/100
[2019-03-26 10:00] VITALS: BP 140/59
--- NOTE | 2019-03-26 11:18 | NUR ---
RECEIVED PT. IN DINING ROOM FOR B'FAST, ALERT, CALM, COOPERATIVE, TIRED. MEDS ADMIN PER ORDERS WITH COMPLETE MED COMPLIANCE NOTED. NO AGGRESSION NOTED. CONT POC DIRECTED.
--- NOTE | 2019-03-26 18:58 | PN ---
PATIENT:MAME DOWNEY MEDICAL RECORD: [id number] LOCATION:[facility] ADMISSION DATE: 03/19/19 PROGRESS NOTE DATE OF SERVICE: 03/25/2019 SUBJECTIVE: The patient's case was discussed with staff. He has no new complaint. OBJECTIVE: The patient is not overly sedated, although he does tend to nap a great deal through the day. He denies any thoughts of harming himself or others. He is oriented only to person and place. He wants to go back to and apparently has forgotten that he is living in [place]. The family is involved with the discharge process and we are looking at prison placement. TRANSINT:[id number] Voice Confirmation ID: [id number] DOCUMENT ID: [id number] GEO RUTHERFORD MD at 1858 CC: [id number] DICTATION DATE: 03/25/19 1042 QA CONSULTANT: 03/25/19 1318 ADM IN [place] [id number] [place] [id number]
[2019-03-26 21:10] VITALS: BP 144/64
--- NOTE | 2019-03-26 22:14 | NUR ---
PATIENT IS CONFUSED. HE TENDS TO STAY TOO HIMSELF, HE BECOMES AGITATED EASILY. COMPLIANT WITH MEDS. PATIENT IS TALKING ABOUT THE TV IN HIS ROOM IS NOT WORKING. HE IS ABLE TO MAKE NEEDS KNOWN AND IS ABLE TO PERFORM OWN ADL'S. WILL FOLLOW POC
--- NOTE | 2019-03-27 07:00 | NUR ---
babysitter reported that the patient's blood sugar was low, they said he asked for a turkey sandwich, but he took one bite and said he didn't want it then staff gave him angela crackers and peanut butter and he said "No, I don't want it, this is the worst place ever, I am reporting this place when I get out of here."
--- NOTE | 2019-03-27 08:45 | NUR ---
The patient is awake and he is refusing to get up. He did swing at [facility] He is telling staff "No, I do not want go down there and pee." Staff explained to him that it is a policy that the patient's get up out of bed and go to groups. The patient is irritable and agitated. One staff from Rehab is here speaking to him, but he is giving the staff the run around.
--- NOTE | 2019-03-27 08:49 | NUR ---
The patient is not listening to reason. He keeps saying "I was told I am leaving today, I am not getting up." Called jin murdock as the patient is noncompliant and hitting at staff. Staff provided ativan and haldol IM as per order. Rehab personnel talking to the patient and the maintanance men are here for assistance. He is call ing all staff "Bitches." Assisted the patient to a quinn chair, took him to the dining room. He is refusing to eat breakfast.
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
[2019-03-27 09:41] VITALS: BP 136/61
--- NOTE | 2019-03-27 09:49 | NUR ---
The patient is not agitated now. He is sitting in a gerichair. He does agree to take his meds this am.
--- NOTE | 2019-03-27 12:07 | NUR ---
NUTRITION F/U CHART REVIEWED. PT VISIT. REPORTS RECENT BM. PO INTAKE ~50% RECENT MEALS. WT SLIGHTLY DOWN. IS RECEIVING MEGACE. WILL CONTINUE TO PROVIDE DIET, MONITOR PO INTAKE AND WT. RD FOLLOWING
--- NOTE | 2019-03-27 13:52 | PN ---
PATIENT:MAME DOWNEY MEDICAL RECORD: [id number] LOCATION:[facility] ADMISSION DATE: 03/19/19 PROGRESS NOTE DATE OF SERVICE: 03/26/2019 SUBJECTIVE: The patient's case was discussed with staff. He has no new complaint. OBJECTIVE: The patient was agitated and disruptive with some of the staff. He has pretty limited insight about his condition. He had no recollection of the aggression that occurred this morning. ASSESSMENT: Dementia. PLAN: I am going to prescribe Geodon on a scheduled basis to assist with this patient's agitation. He will be monitored for clinical changes associated with its use. His long-term prognosis is guarded. TRANSINT:[id number] Voice Confirmation ID: [id number] DOCUMENT ID: [id number] GEO RUTHERFORD MD at 1352 CC: [id number] DICTATION DATE: 03/26/192011 BOOKIE: 03/27/19 0042 ADM IN [place] [id number] [place] [id number]
--- NOTE | 2019-03-27 16:14 | NUR ---
The patient's son brought the patient's miracle ear hearing aids in with a order processing manager. We will keep the order processing manager at the desk and the nurse can provide the hearing aids in the morning. Not being able to hear may be a source of his irritability. Will try them after they are charged this pm.
--- NOTE | 2019-03-27 16:42 | NUR ---
PATIENT FAMILY SHOWED NURSE WHERE PT CRACK OF THE LIPS WAS SPLIT A BIT. FAMILY STATED HE HAD BEEN TO FAMILY DOCTOR ABOUT LIPS CRACKING IN THAT AREA. PT DID NOT MAKE ATTENDING DOCTOR AWARE. WILL CALL TO MAKE AWARE. PT GIRLFRIEND TRIMMED FARR UNDER SUPERVISION OF THE NURSE. PT TOLERATED WELL. NURSE APPLIED PETROLEUM JELLY UNTIL PRESCRIPTION COULD BE OBTAINED. FAMILY THANKED NURSE.
--- NOTE | 2019-03-27 19:40 | NUR ---
REC'D SITTING IN THE HALLWAY. ORIENTED TO SELF AND HOSPITAL HOWEVER RELATED "CAN'T KEEP UP WITH IT. I HAVEN'T SEEN A CALENDAR REGARDING." WITHDRAWN AND GUARDED. PRESSURED SPEECH AT TIMES. APPEARS TO BECOME AGITATED WHEN TRYING TO TALK WITH HIN. ADMINISTER MEDS AND MONITOR COMPLIANCE. ENGAGE IN REALITY BASED CONVERSATION. MED COMPLIANT. POOR INTERACTION. REMAINS GUARDED AND APPEARS AGITATED WITH INTERACTION AND EXHIBITS PRESSURED SPEECH. CONTINUE POC AND PROVIDE SAFE ENVIRONMENT.
[2019-03-27 20:05] VITALS: BP 114/45
[2019-03-28 09:42] VITALS: BP 118/31
[2019-03-28 09:56] VITALS: BP 148/62
--- NOTE | 2019-03-28 10:54 | NUR ---
B) Provided the patient his hearing aids but he said they didn't work and so I put them back on the bending shed worker. He is more pleasant today. He ambulates independently. He has not shown any aggression today and he did get up easily. I) Provide prescribed meds. R) He is compliant with meds but he wants to sleep and he is not interactive in groups. P) Continue POC.
--- NOTE | 2019-03-28 15:52 | PN ---
PATIENT:MAME DOWNEY MEDICAL RECORD: [id number] LOCATION:[facility] ADMISSION DATE: 03/19/19 PROGRESS NOTE DATE OF SERVICE: 03/27/2019 SUBJECTIVE: The patient's case was discussed with staff. He has no new complaint. OBJECTIVE: The patient denies intent to harm himself or others. Earlier today, he was agitated and required p.r.n. medication to address this. In fact, a CODE for aggression was called and male staff members from the hospital responded because he was so violent. ASSESSMENT: Dementia. PLAN: I am going to treat the patient with a low dose of Klonopin. I attempted to do this earlier this week or late last week and he had some sedation, but I am going to rechallenge him at a lower dose, it was effective. TRANSINT:[id number] Voice Confirmation ID: [id number] DOCUMENT ID: [id number] GEO RUTHERFORD MD at 1552 CC: [id number] DICTATION DATE: 03/27/19 1547 CRISIS CLINICIAN: 03/27/19 1604 ADM IN [place] [id number] [place] [id number]
[2019-03-28 20:58] VITALS: BP 117/48
--- NOTE | 2019-03-29 01:46 | NUR ---
B) Patient is alert and oriented to person and place, restless and wanders at times, ambulates independantly I) Administered scheduled medications as ordered, monitored for needs R) Mediation compliant, social with staff, P) Continue plan of care.
[2019-03-29 09:19] VITALS: BP 142/64
--- NOTE | 2019-03-29 10:40 | NUR ---
RECEIVED PT IN DINING ROOM FOR B'FAST, ALERT, CALM, COOPERATIVE, NO AGGRESSION NOTED. NO EXIT-SEEKING NOTED. MEDS ADMIN PER ORDERS WITH COMPLETE MED COMPLIANCE NOTED. COOPERATIVE WITH PLAN OF CARE. CONT POC DIRECTED.
--- NOTE | 2019-03-29 12:02 | PN ---
PATIENT:MAME DOWNEY MEDICAL RECORD: [id number] LOCATION:[facility] ADMISSION DATE: 03/19/19 PROGRESS NOTE DATE OF SERVICE: 03/28/2019 SUBJECTIVE: The patient's case was discussed with staff. He has no new complaint. OBJECTIVE: The patient is in good behavioral control with poor insight about his condition. He tolerates his medicines well. ASSESSMENT: No change in diagnoses. PLAN: Supportive and educational interventions were made. I anticipate the patient can be transitioned out of the hospital soon. TRANSINT:[id number] Voice Confirmation ID: [id number] DOCUMENT ID: [id number] GEO RUTHERFORD MD at 1202 CC: [id number] DICTATION DATE: 03/28/19 165 FABRIC WORKER SUPERVISOR: 03/28/192108 ADM IN [place] [id number] [place] [address]
[2019-03-29 20:00] VITALS: BP 136/60
--- NOTE | 2019-03-30 03:21 | NUR ---
B.) PT IS ALERT AND ORIENTED TO SELF ONLY. HE HAS POOR INSIGHT INTO HIS SITUATION. HE IS CALM AND COOPERATIVE AND CAN MAKE HIS NEEDS KNOWN. PT IS PLEASANT WITH STAFF. I.) PROVIDED PM MEDICATION. R.) COMPLIANT WITH MEDICATIONS P.) CONTINUE PLAN OF CARE
[2019-03-30 07:00] VITALS: BP 136/55
[2019-03-30] MEDS ORDERED: CELEXA20 MG PO (09:44)
[2019-03-30] MEDS ORDERED: FLORAJEN3 CAPS460 MG PO (09:45)
[2019-03-30] MEDS ORDERED: GEODON20 MG PO (09:45)
[2019-03-30] MEDS ORDERED: TIMOPTIC 0.5 % O5 ML OP (09:45)
[2019-03-30] MEDS ORDERED: KLONOPIN0.5 MG PO (09:45)
[2019-03-30] MEDS ORDERED: XALATAN 0.0052.5 ML EACH EYE (09:45)
[2019-03-30] MEDS ORDERED: Megace ES [CHEMO] PO (09:45)
[2019-03-30] MEDS ORDERED: VITAMIN D5000 UNIT PO (09:46)
--- NOTE | 2019-03-30 10:00 | NUR ---
RECEIVED PT IN DINING ROOM FOR B'FAST, ALERT, CALM, QUIET, COOPERATIVE. NO AGGRESSION OR BEHAVIORAL ISSUES NOTED. MEDS ADMIN PER ORDERS WITH COMPLETE MED COMPLIANCE NOTED. CONT POC DIRECTED.
[2019-03-30 20:00] VITALS: BP 130/48
--- NOTE | 2019-03-30 23:00 | NUR ---
B.) PT IS ALERT AND ORIENTED TO SELF AND SITUATION. PT IS IMPATIENT WITH STAFF. I.) PROVIDED PM MEDICATIONS. DECREASE STIMULATION. R.) COMPLIANT WITH ALL MEDICATIONS. P.) CONTINUE PLAN OF CARE
[2019-03-31 07:00] VITALS: BP 140/52
--- NOTE | 2019-03-31 10:29 | NUR ---
RECEIVED PT IN DINING ROOM FOR B'FAST, ALERT, CALM, COOPERATIVE, COMPLIANT WITH MEDS. NO BEHAVIORAL ISSUES NOTED. CONT PLAN OF CARE UNTIL DISCHARGE LATER THIS SHIFT.
--- NOTE | 2019-03-31 15:51 | PN ---
PATIENT:MAME DOWNEY MEDICAL RECORD: [id number] LOCATION:[facility] ADMISSION DATE: 03/19/19 PROGRESS NOTE DATE OF SERVICE: 03/30/2019 OBJECTIVE: The patient is in good behavioral control. He is only partially oriented. He is denying any intent to harm himself or others. ASSESSMENT: No change in diagnoses. PLAN: Current medicines and therapies have been reviewed and will be maintained. Long-term prognosis is guarded. TRANSINT:[id number] Voice Confirmation ID: [id number] DOCUMENT ID: [id number] GEO RUTHERFORD MD at 1551 CC: [id number] DICTATION DATE: 03/30/19 0944 ROLLER MECHANIC: 03/30/19 1519 ADM IN [place] [id number] [place] [address]
--- NOTE | 2019-03-31 15:51 | PN ---
PATIENT:MAME DOWNEY MEDICAL RECORD: [id number] LOCATION:[facility] ADMISSION DATE: 03/19/19 PROGRESS NOTE DATE OF SERVICE: 03/29/2019 SUBJECTIVE: The patient's case was discussed with staff. He has no new complaint. OBJECTIVE: The patient is in good behavioral control with limited insight about his condition. He does tolerate his medicines well. He is not eating adequately, but he is sleeping well. ASSESSMENT: Dementia. PLAN: Brief supportive and educational interventions were made. Long-term prognosis is guarded. Current medicines have been reviewed and will be maintained. TRANSINT:[id number] Voice Confirmation ID: [id number] DOCUMENT ID: [id number] GEO RUTHERFORD MD at 1551 CC: [id number] DICTATION DATE: 03/29/19 1251 LAWN SERVICE MANAGER: 03/29/19 1502 ADM IN [place] [id number] [place] [id number]
--- NOTE | 2019-03-31 18:00 | NUR ---
PERSONAL BELONGINGS RETURNED TO PATIENT. PATIENT DISCHARGED FROM FACILITY IN C/O [facility] TRANSPORT. NO C/O PAIN OR S/S DISTRESS. REPORT CALLED TO NURSE ARRIAZA WITH [facility].
--- NOTE | 2019-04-01 12:36 | PN ---
PATIENT:MAME DOWNEY MEDICAL RECORD: [id number] LOCATION:[facility] ADMISSION DATE: 03/19/19 PROGRESS NOTE DATE OF SERVICE: 03/31/2019 SUBJECTIVE: The patient's case was discussed with staff. He has no new complaint. OBJECTIVE: The patient is in good behavioral control with limited insight about his condition. He is tolerating his medicines reasonably well. ASSESSMENT: Dementia. PLAN: Current medicines and therapies have been reviewed and will be maintained. Long-term prognosis is guarded. TRANSINT:[id number] Voice Confirmation ID: [id number] DOCUMENT ID: [id number] GEO RUTHERFORD MD at 1236 CC: [id number] DICTATION DATE: 03/31/191705 SETTLEMENT PROCESSOR: 03/31/191913 DIS IN 03/31/[address] [facility] [address] [place] [address]
--- NOTE | 2019-04-16 15:47 | DS ---
PATIENT:MAME DOWNEY :43 MEDICAL RECORD: [id number] DISCHARGE SUMMARY ADMISSION DATE: 03/19/19 DISCHARGE DATE: 03/31/19 IDENTIFYING DATA: The patient is 73 years old and he was initially admitted to the hospital secondary to an ischemic stroke. The patient later developed some aggression. He had previously been living alone in [place], but was found in a disheveled condition lying on the floor in excrement and vomitus. Apparently, he had a stroke and was unable to get up. After being stabilized from a medical and neurologic standpoint, he was referred to us for treatment. HOSPITAL COURSE: The patient was admitted to the hospital and fully evaluated from both a medical, psychological, and social standpoint. He was treated with both mood stabilizing and memory enhancing medications and did show significant improvement in his underlying behaviors. It was clear that he was severely impaired cognitively and that this was going to be permanent. He was subsequently referred to a assisted and was placed there. DISCHARGE DIAGNOSES: AXIS I: Vascular dementia. AXIS II: None. AXIS III: Hypertension, acute kidney injury, hyperkalemia, hypomagnesemia, hypertension, dyslipidemia, gastroesophageal reflux disease, benign prostatic hypertrophy, coronary artery disease, and a stroke. PLAN: At the time of discharge, the patient was in good behavioral control and had no active thoughts of harming himself or others. He was to be followed by his primary care assisted physician and his prognosis is guarded. TRANSINT:[id number] Voice Confirmation ID: [id number] DOCUMENT ID: [id number] GEO RUTHERFORD MD at 1547 CC: [id number] DICTATION DATE: 04/03/19 1351 HACKLER DOLL WIGS: 04/04/19 0146 DIS IN 03/31/19 [place] [id number] [place] [address]
== END 2019-03-31 18:00 | DRG 56 ==
LOC: D.PSYCH 19:20
PROVIDERS: ADMIT Psychiatry & Neurology Psychiatry; ATTEND Psychiatry & Neurology Psychiatry
DX: I69.919 Unspecified symptoms and signs involving cognitive functions following unspecified cerebrovascular disease (principal); J69.0 Pneumonitis due to inhalation of food and vomit; F01.51 Vascular dementia, unspecified severity, with behavioral disturbance; E03.9 Hypothyroidism, unspecified; I10 Essential (primary) hypertension; I25.10 Atherosclerotic heart disease of native coronary artery without angina pectoris; M50.30 Other cervical disc degeneration, unspecified cervical region; E11.65 Type 2 diabetes mellitus with hyperglycemia; E78.5 Hyperlipidemia, unspecified; K21.9 Gastro-esophageal reflux disease without esophagitis; N40.0 Benign prostatic hyperplasia without lower urinary tract symptoms; E55.9 Vitamin D deficiency, unspecified